=== PATIENT | male | born 1945 | race Caucasian/White ===

== ENCOUNTER 2020-09-05 06:31 | Outpatient (REF) | payer MEDICARE, OTHER, SELFPAY ==
[2020-09-05 07:56] LABS: Hematocrit 36.2 % (42-52); Mean Corpuscular HGB Conc 30.4 g/dl (31.0-36.0); Mean Corpuscular Hemoglobin 23.4 pg (27.0-33.0); Platelet Count 113 X10*3/uL (160-400); White Blood Count 6.5 X10*3/uL (4.8-10.8)
[2020-09-05 08:18] LABS: Alanine Aminotransferase 19 U/L (0-40); Albumin Level 3.9 g/dL (3.5-5.0); Alkaline Phosphatase 96 U/L (39-117); Anion Gap 14 (12-20); Aspartate Amino Transferase 11 U/L (5-37); Bilirubin Total 0.6 mg/dL (0.0-1.0); Blood Urea Nitrogen 17 mg/dL (9-16); Carbon Dioxide 24 mmol/L (22-29); Chloride 108 mmol/L (96-108); Estimated Glomerular Filt Rate > 60; Glucose Random 166 mg/dL (60-115); Potassium 4.6 mmol/L (3.3-5.1); Sodium 141 mmol/L (135-145); Total Protein 6.4 g/dL (6.5-8.0)
[2020-09-05 08:46] LABS: Band Neutrophils Percent 12 % (3-5); Basophils Abs Manual 0.1 X10*3/uL (0.0-0.3); Basophils Percent Manual 2 % (0-1); Eosinophils Absolute Manual 0.1 X10*3/UL (0.0-0.8); Eosinophils Percent Manual 2 % (0-4); Lymphocytes Absolute Manual 2.2 X10*3/uL (0.6-4.8); Lymphocytes Percent Manual 34 % (20-40); Metamyelocytes Absolute 0.1 X10*3/uL; Metamyelocytes Percent 1 %; Monocytes Absolute Manual 0.1 X10*3/uL (0.0-1.2); Monocytes Percent Manual 1 % (2-11); Myelocytes Absolute 0.1 X10*/uL; Myelocytes Percent 2 %; Neutrophils Absolute Manual 3.8 X10*3/uL (2.2-7.9); Neutrophils Percent Manual 46 % (45-73); Prostate Specific Antigen < 0.05 ng/mL (<0.05-4.0)
[2020-09-05 08:47] LABS: Acanthocytes 3+ (>5) /OIF; Microcytosis 2+ (15-30) /OIF; Ovalocytes 1+ (5-14) /OIF; RBC Morphology NOTED
[2020-09-05 08:48] LABS: Large Platelet PRESENT; Platelet Estimate SLIGHTLY DECREASED (NORMAL); Platelet Morphology Comment NOTED; Schistocytes 1+ (0-2) /OIF; WBC Morphology Comment DYSMORPHIC
[2020-09-10 08:02] LABS: Testosterone, Total <1 ng/dL (250-1100)
== END 2020-09-05 06:32 | disposition home or self-care (01) ==
LOC: HO.LAB 06:31
PROVIDERS: PCP Family Medicine; Visit Provider Internal Medicine
DX: Z12.5 Encounter for screening for malignant neoplasm of prostate (principal); C61 Malignant neoplasm of prostate
CPT/HCPCS: 36415; 80053; 84153; 84403; 85007; 85027